=== PATIENT | female | born 1945 ===

== ENCOUNTER → 2017-04-19 | Outpatient (REF) ==
[2017-04-19 15:35] LABS: HIV 1/2 Antibodies Non-Reactive; HIV-1p24 Antigen Non-Reactive
[2017-04-20 00:44] LABS: HEPATITIS B SURFACE ANTIBODY <2.0 (()); HEPATITIS B SURFACE ANTIGEN Negative (()); HEPATITIS C VIRUS ANTIBODY Negative (())
== END ==
LOC: ZMSC 14:32
PROVIDERS: Orthopaedic Surgery
DX: Z01.89 Encounter for other specified special examinations (principal)